=== PATIENT | female | born 1990 | race Caucasian/White ===

== ENCOUNTER 2021-01-21 16:31 | Emergency (ER) | payer OTHER, SELFPAY ==
[2021-01-21 16:46] VITALS: BP 136/73; PULSE 95; RESP 18; TEMP 37.6; O2SAT 96; BMI 26.1
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
--- NOTE | 2021-01-21 17:44 | DI.RAD.S_ITS ---
PROCEDURE: XR SHOULDER RT MIN 2V INDICATIONS: pain in R shoulder TECHNIQUE: 3 views of the shoulder were acquired. COMPARISON: None. FINDINGS: Bones: No fractures or dislocations. No suspicious bony lesions. Visualized ribs appear intact. Soft tissues: No suspicious soft tissue calcifications. The visualized lung demonstrates an unremarkable appearance. IMPRESSION: Normal right shoulder plain films. If it would be helpful for clinical management decision making, please consider a dedicated, scheduled shoulder MRI for further evaluation (assuming that there is no contraindication). Dictated by: Devante Bryant M.D. on 01/21/2021 at 17:04 Approved by: Devante Bryant M.D. on 01/21/2021 at 17:05
[2021-01-21 18:35] VITALS: BP 130/70; PULSE 80; RESP 18; O2SAT 99
== END 2021-01-21 18:35 | disposition home or self-care (01) ==
PROVIDERS: Emergency Provider Emergency Medicine
DX: S49.91XA Unspecified injury of right shoulder and upper arm, initial encounter (principal); V89.2XXA Person injured in unspecified motor-vehicle accident, traffic, initial encounter
CPT/HCPCS: 73030; 99283; 99284